=== PATIENT | male | born 1995 | race Caucasian/White ===

== ENCOUNTER 2021-06-21 17:43 | Emergency (ER) | payer BC ==
[~2021-06-21] VITALS: Ht 195.6 cm; Wt 104.0 kg
[2021-06-21 17:57] VITALS: BP 124/75
[2021-06-21 19:18] LABS: BASOPHILS % 0.6 % (0.0-2.0); HEMATOCRIT. 47.4 % (42.0-52.0); HEMOGLOBIN. 15.9 g/dL (14.0-18.0); LYMPHOCYTES % 27.5 % (20.0-50.0); MEAN CORPUSCULAR HEMOGLOBIN 29.6 pg (28.0-32.0); MEAN CORPUSCULAR VOLUME 88.5 fL (80.0-94.0); MEAN PLATELET VOLUME 7.9 fl (7.4-10.4); NEUTROPHILS % 64.9 % (40.0-76.0); PLATELET 201 x1000/uL (130-400); RED BLOOD CELL COUNT 5.36 mill/uL (4.7-6.1)
[2021-06-21 20:30] LABS: CHLORIDE 108 mEq/L (98-107)
[2021-06-21 20:37] LABS: LDL CHOLESTEROL 40 mg/dL (5-100)
[2021-06-21 20:38] LABS: HDL CHOLESTEROL 54 mg/dL (40-59)
[2021-06-23 04:08] LABS: MUMPS IGG ANTIBODY 36.7 AU/mL (Immune >10.9)
== END 2021-06-21 18:47 | disposition home or self-care (01) ==
LOC: ER 18:07
DX: Z11.59 Encounter for screening for other viral diseases (principal); Z86.11 Personal history of tuberculosis; Z88.0 Allergy status to penicillin
CPT/HCPCS: 36415; 71045; 80048; 80061; 80076; 83036; 84436; 84443; 85025; 86706; 86735; 86765; 86787; 99284